=== PATIENT | female | born 1995 | race Caucasian/White ===

== ENCOUNTER 2018-01-07 15:05 | Emergency (ER) | payer MEDICAID ==
[~2018-01-07] VITALS: Ht 160 cm; Wt 63.5 kg
[2018-01-07 15:22] VITALS: BP 117/61
[2018-01-07 16:17] LABS: CLARITY URINE CLEAR (CLEAR); COLOR URINE YELLOW (YELLOW); KETONES URINE NEGATIVE (NEGATIVE); LEUKOCYTE ESTERASE URINE NEGATIVE (NEGATIVE); NITRITE URINE NEGATIVE (NEGATIVE); OCCULT BLOOD URINE NEGATIVE (NEGATIVE); PH URINE 6.5 (4.5-8.0); PROTEIN URINE NEGATIVE (NEGATIVE); SPECIFIC GRAVITY URINE 1.009 (1.005-1.030); UROBILINOGEN URINE 0.2 E.U./dL (0.2-1.0)
== END 2018-01-07 20:40 | disposition left against medical advice (07) ==
LOC: ER 15:05
DX: O26.891 Other specified pregnancy related conditions, first trimester (principal); R10.9 Unspecified abdominal pain; Z3A.01 Less than 8 weeks gestation of pregnancy; Z53.21 Procedure and treatment not carried out due to patient leaving prior to being seen by health care provider
CPT/HCPCS: 81003; 81025

== ENCOUNTER 2018-01-08 22:34 | Emergency (ER) | payer MEDICAID ==
[~2018-01-08] VITALS: Ht 160 cm; Wt 64.0 kg
[2018-01-09 00:51] LABS: CHLORIDE 106 mEq/L (98-107)
[2018-01-09 00:55] LABS: HEMOGLOBIN. 14.5 g/dL (12.0-16.0); MEAN CORPUSCULAR HEMOGLOBIN 29.4 pg (28.0-32.0); RED BLOOD CELL COUNT 4.94 mill/uL (4.2-5.4)
[2018-01-09 01:04] LABS: B-HCG QUANTITATIVE 301 mIU/mL (<3)
[2018-01-09 01:20] LABS: BASOPHILS % 0.2 % (0.0-2.0); EOSINOPHILS % 1.1 % (0.0-5.0); HEMATOCRIT. 42.9 % (36.0-48.0); LYMPHOCYTES % 35.8 % (20.0-50.0); MEAN CORPUSCULAR VOLUME 86.7 fL (81.0-99.0); MONOCYTES % 9.4 % (2.0-8.0); NEUTROPHILS % 53.5 % (40.0-76.0); PLATELET 241 x1000/uL (130-400); RED CELL DISTRIBUTION WIDTH 13.2 % (11.6-14.6)
[2018-01-09 01:25] VITALS: BP 98/51
[2018-01-09 02:19] LABS: CLARITY URINE CLEAR (CLEAR); COLOR URINE YELLOW (YELLOW); KETONES URINE NEGATIVE (NEGATIVE); LEUKOCYTE ESTERASE URINE NEGATIVE (NEGATIVE); NITRITE URINE NEGATIVE (NEGATIVE); OCCULT BLOOD URINE 3+ (NEGATIVE); PH URINE 5.5 (4.5-8.0); PROTEIN URINE NEGATIVE (NEGATIVE); SPECIFIC GRAVITY URINE 1.023 (1.005-1.030); UROBILINOGEN URINE 0.2 E.U./dL (0.2-1.0)
== END 2018-01-09 01:30 | disposition home or self-care (01) ==
LOC: ER 22:34
DX: O20.0 Threatened abortion (principal); F12.10 Cannabis abuse, uncomplicated; Z3A.01 Less than 8 weeks gestation of pregnancy
CPT/HCPCS: 36415; 76801; 81025; 84702; 86850; 86900; 99285

== ENCOUNTER 2018-01-11 12:40 | Emergency (ER) | payer MEDICAID ==
[~2018-01-11] VITALS: Ht 162.6 cm; Wt 64.0 kg
[2018-01-11 15:31] LABS: CHLORIDE 106 mEq/L (98-107)
[2018-01-11 15:39] LABS: BASOPHILS % 0.1 % (0.0-2.0); EOSINOPHILS % 0.3 % (0.0-5.0); HEMATOCRIT. 42.3 % (36.0-48.0); HEMOGLOBIN. 14.3 g/dL (12.0-16.0); LYMPHOCYTES % 28.1 % (20.0-50.0); MEAN CORPUSCULAR HEMOGLOBIN 29.7 pg (28.0-32.0); MEAN CORPUSCULAR VOLUME 87.6 fL (81.0-99.0); MEAN PLATELET VOLUME 9.3 fl (7.4-10.4); MONOCYTES % 8.1 % (2.0-8.0); NEUTROPHILS % 63.4 % (40.0-76.0); PLATELET 229 x1000/uL (130-400); RED BLOOD CELL COUNT 4.83 mill/uL (4.2-5.4); RED CELL DISTRIBUTION WIDTH 13.3 % (11.6-14.6)
[2018-01-11 15:45] LABS: B-HCG QUANTITATIVE 74 mIU/mL (<3)
[2018-01-11 17:14] VITALS: BP 110/57
== END 2018-01-11 17:17 | disposition home or self-care (01) ==
LOC: ER 15:17
DX: O02.1 Missed abortion (principal)
CPT/HCPCS: 36415; 76830; 76856; 80053; 81025; 84702; 85025; 86850; 86900; 86901; 99285; Z7610

== ENCOUNTER 2020-01-12 11:03 | Emergency (ER) | payer MEDICAID ==
[~2020-01-12] VITALS: Ht 162.6 cm; Wt 63.5 kg
[2020-01-12] MEDS ORDERED: MORPHINE SULFATE 4 MG/ML CPJ (NOT FOR IM USE) IV STA (11:19)
[2020-01-12] MEDS ORDERED: ONDANSETRON HCL 4MG/2ML INJ IV STA (11:19)
[2020-01-12] MEDS ORDERED: FAMOTIDINE 20MG/2ML VIAL IV ONE (11:30)
[2020-01-12] MEDS ORDERED: SODIUM CHLORIDE 0.9% 1000ML BAG (SEPSIS BOLUS) IV ONE (11:30)
[2020-01-12 11:44] LABS: BASOPHILS % 0.2 % (0.0-2.0); HEMATOCRIT. 39.5 % (36.0-48.0); HEMOGLOBIN. 13.4 g/dL (12.0-16.0); LYMPHOCYTES % 8.2 % (20.0-50.0); MEAN CORPUSCULAR HEMOGLOBIN 28.9 pg (28.0-32.0); MEAN CORPUSCULAR VOLUME 85.2 fL (81.0-99.0); MEAN PLATELET VOLUME 8.3 fl (7.4-10.4); MONOCYTES % 7.3 % (2.0-8.0); NEUTROPHILS % 84.3 % (40.0-76.0); PLATELET 224 x1000/uL (130-400); RED BLOOD CELL COUNT 4.64 mill/uL (4.2-5.4); RED CELL DISTRIBUTION WIDTH 12.8 % (11.6-14.6)
[2020-01-12 11:51] LABS: CHLORIDE 104 mEq/L (98-107)
[2020-01-12 11:55] LABS: ETHANOL BLOOD < 10 mg/dL
[2020-01-12 12:16] LABS: HCG SCREEN NEGATIVE
[2020-01-12 12:32] LABS: CLARITY URINE CLOUDY (CLEAR); COLOR URINE DARK YELLOW (YELLOW); KETONES URINE 1+ (NEGATIVE); LEUKOCYTE ESTERASE URINE TRACE (NEGATIVE); NITRITE URINE NEGATIVE (NEGATIVE); OCCULT BLOOD URINE TRACE (NEGATIVE); PH URINE 5.5 (4.5-8.0); PROTEIN URINE 1+ (NEGATIVE); SPECIFIC GRAVITY URINE 1.028 (1.005-1.030); UROBILINOGEN URINE 0.2 E.U./dL (0.2-1.0)
[2020-01-12 12:41] LABS: *AMPHETAMINES SCREEN URINE NEGATIVE (NEGATIVE); *BARBITURATES SCREEN URINE NEGATIVE (NEGATIVE); *BENZODIAZEPINES SCREEN URINE NEGATIVE (NEGATIVE); *COCAINE SCREEN URINE NEGATIVE (NEGATIVE)
[2020-01-12 12:42] LABS: METHADONE URINE SCREEN NEGATIVE (NEGATIVE); OPIATES URINE SCREEN NEGATIVE (NEGATIVE); PHENCYCLIDINE URINE SCREEN NEGATIVE (NEGATIVE)
[2020-01-12 12:46] LABS: CANNABINOID URINE SCREEN PRESUMTIVE POSITIVE (NEGATIVE)
[2020-01-12] MEDS ORDERED: ACETAMINOPHEN 325MG TABLET PO STA (14:31)
[2020-01-12] MEDS: POTASSIUM CHLORIDE 20MEQ TABLET SR PO NR ×2 (14:55→14:57)
[2020-01-12 16:56] VITALS: BP 107/57
[2020-01-12] MEDS ORDERED: IOHEXOL-300 100 ML BOTTLE ONE (23:00)
== END 2020-01-12 16:58 | disposition home or self-care (01) ==
LOC: ER 11:03
DX: N39.0 Urinary tract infection, site not specified (principal); E87.6 Hypokalemia; F14.10 Cocaine abuse, uncomplicated; F12.10 Cannabis abuse, uncomplicated; Z98.51 Tubal ligation status
CPT/HCPCS: 36415; 71045; 74177; 76705; 80053; 80305; 80320; 81003; 81025; 83605; 83690; 84145; 84484; 84703; 85025; 87040; 87086; 93005; 96361; 96374; 96375; 99285; J2270; J2405; J3490; J7030; Q9967; G0480

== ENCOUNTER 2020-02-11 10:35 | Emergency (ER) | payer MEDICAID ==
[~2020-02-11] VITALS: Ht 162.6 cm; Wt 66.0 kg
[2020-02-11 10:39] VITALS: BP 117/78
[2020-02-11] MEDS ORDERED: ONDANSETRON 4MG ODT PO ONE (11:30)
[2020-02-11] MEDS ORDERED: HYDROCODONE/ACETAMINOPHEN 5/325MG TABLET PO ONE (11:30)
== END 2020-02-11 13:04 | disposition home or self-care (01) ==
LOC: ER 10:48
DX: H66.91 Otitis media, unspecified, right ear (principal); H60.501 Unspecified acute noninfective otitis externa, right ear
CPT/HCPCS: 99283; Q0162